=== PATIENT | female | born 1945 | race Caucasian/White ===

== ENCOUNTER 2019-06-14 15:48 | Inpatient (IN) ==
[2019-06-14] MEDS ORDERED: DILTIAZEM HCL 5 MG/ML VIAL IV ONE ×2 (16:20→17:08)
[2019-06-14 16:27] LABS: Hematocrit 40.8 % (37.0-47.0); Hemoglobin 13.5 gm/dL (12.5-16.0); Mean Corpuscular Hemoglobin 33.1 pg (27-31); Mean Corpuscular Hgb Conc 33.1 g/dl (32-36); Mean Platelet Volume 9.6 fl (8-12.5); Neutrophil # 11.4 K/mm3 (1.3-6.0); Neutrophil % 86.5 % (42-75.0); Platelet Count 222 K/mm3 (150-450); Red Blood Count 4.08 M/mm3 (4.2-5.4); Red Cell Distribution Width 12.3 % (11.5-14.0); White Blood Count 13.1 K/mm3 (4.0-10.5)
--- NOTE | 2019-06-14 16:35 | ERNOTE ---
Medical Problem HPI - General Chief Complaint: General Assessment Time Seen by Provider: 06/14/19 16:15 Source: patient Exam Limitations: no limitations - Immun/Allergies/Home Medications Immunizations: IMMUNIZATION HX Immunizations Up to Date Yes History of Influenza Vaccine Yes Hx Pneumococcal Vaccination Yes Allergies/Adverse Reactions: Allergies celecoxib Allergy (Verified 06/14/19 15:57) codeine Allergy (Verified 06/14/19 15:57) hydrocodone Allergy (Verified 06/14/19 15:57) lisinopril Allergy (Verified 06/14/19 15:57) mesalamine Allergy (Verified 06/14/19 15:57) metoclopramide Allergy (Verified 06/14/19 15:57) prochlorperazine Allergy (Verified 06/14/19 15:57) promethazine Allergy (Verified 06/14/19 15:57) salsalate Allergy (Verified 06/14/19 15:57) sucralfate Allergy (Verified 06/14/19 15:57) sulfamethoxazole Allergy (Verified 06/14/19 15:57) trimethoprim Allergy (Verified 06/14/19 15:57) Home Medications: HOME MEDICATIONS ALPRAZolam [Xanax] 0.5 mg PO Q6H PRN 09/21/18 [Last Taken Unknown] ALPRAZolam [Xanax] 1 mg PO HS PRN 09/21/18 [Last Taken Unknown] Albuterol Sulfate [Proair Hfa] 2 puff INHALATION QID PRN 09/21/18 [Last Taken Unknown] Budesonide/Formoterol Fumarate [Symbicort 160-4.5 Mcg Inhaler] 10.2 gm INHALATION BID 09/21/18 [Last Taken Unknown] Calcium Carb, Cit/Mag Cit, Gly [Localnesium Tablet] 1 ea PO DAILY 09/21/18 [Last Taken Unknown] Cholecalciferol [Vitamin D] 800 unit PO DAILY 09/21/18 [Last Taken Unknown] Cyanocobalamin [Vitamin B-12] 1,000 mcg IJ Q28D 09/21/18 [Last Taken Unknown] Dexlansoprazole [Dexilant] 60 mg PO DAILY 09/21/18 [Last Taken Unknown] Folic Acid 1 mg PO BID 09/21/18 [Last Taken Unknown] Hydrochlorothiazide 12.5 mg PO PRN PRN 09/21/18 [Last Taken Unknown] Levalbuterol Tartrate [Xopenex Hfa] 15 gm INHALATION Q4H PRN 09/21/18 [Last T aken Unknown] Montelukast Sodium [Singulair] 10 mg PO DAILY 09/21/18 [Last Taken Unknown] Multivitamin [One Daily Multivitamin] 1 ea PO DAILY 09/21/18 [Last Taken Unknown] Olmesartan Medoxomil [Benicar] 10 mg PO DAILY 09/21/18 [Last Taken Unknown] Ondansetron HCl 4 mg PO Q12H PRN 09/21/18 [Last Taken Unknown] Pravastatin Sodium [Pravachol] 20 mg PO DAILY 09/21/18 [Last Taken Unknown] Pyridoxine HCl [Vitamin B-6] 50 mg PO DAILY 09/21/18 [Last Taken Unknown] predniSONE [Prednisone] 2.5 mg PO HS 09/21/18 [Last Taken Unknown] predniSONE [Prednisone] 10 mg PO DAILY 09/21/18 [Last Taken Unknown] traMADol HCL [Tramadol HCl] 50 - 100 mg PO Q4H PRN 09/21/18 [Last Taken Unknown] traZODone HCL [Trazodone HCl] 50 - 100 mg PO HS PRN 09/21/18 [Last Taken Unknown] - History of Present History Narrative: Patient states that she was she was diagnosed with strep throat two weeks ago in the ER after visiting her grandchildren. She was started on levaquin due history of crohns' disease. Patient states that her sore throat has improved but she continue to have a cough with white sputum, generalized malaise and joint pains. While in triage it was noted that her heart rate suddenly increased, she started to have palpitations and associated chest pain, HR 160-180 Review of Systems - Review of Systems Constitutional: Present: recent illness, fatigue, malaise. Absent: fever ENT: Absent: sore throat Respiratory: Present: cough. Absent: shortness of breath Cardiology: Present: chest pain, palpitations Gastrointestinal/Abdominal: Absent: nausea, abdominal pain Genitourinary: Present: no symptoms reported Skin: Present: rash Neurological: Absent: headache Medical History (Last Reviewed 06/14/19 @ 16:33 by Elvira Sr MD) Acute Crohn's disease HTN (hypertension) Hypertension Low gammaglobulin level Normal colonoscopy Surgical History: Surgical History (Last Reviewed 06/14/19 @ 16:33 by Elvira Sr MD) H/O shoulder surgery right History of bowel resection History of hip surgery ear implant baja device for hearing loss Family History: Family History (Last Reviewed 06/14/19 @ 15:57 by Thais Morales RN) Mother CVA (cerebral vascular accident) Hypertension Father Lung cancer Social History: (Last Updated 06/14/19 @ 15:57 by Thais Morales RN) Tobacco: Smoking Status: Never smoker Alcohol: alcohol intake: former Substance Use: substance use type: does not use Physical Exam - Physical Exam General Appearance: Present: wd/wn, alert, mild distress, anxious, thin Eye Exam: Normal inspection: bilateral Ears, Nose, Throat: Present: normal pharynx Respiratory: Present: no respiratory distress, no accessory muscle use, lungs clear, decreased breath sounds, expiration (prolonged) Cardiovascular/Chest: Present: tachycardia Gastrointestinal/Abdominal: Present: nontender, nondistended, soft Extremity Exam: Present: no edema Neurological Exam: Present: alert, oriented, normal mood/affect Skin Exam: Present: normal color, warm/dry Progress - Results and Orders Patient's Lab Results:: I have reviewed the patient's lab results. - Vital Signs Patient's Vital Signs:: I have reviewed the patient's vital signs. Vital Signs: Vital Signs 06/14/19 15:48 06/14/19 16:21 06/14/19 16:26 Temperature 36.9 C Pulse Rate 85 193 H 184 H Respiratory Rate 16 17 Blood Pressure 153/65 H 153/65 H O2 Sat by Pulse Oximetry 100 95 06/14/19 16:29 Temperature Pulse Rate 134 H Respiratory Rate Blood Pressure O2 Sat by Pulse Oximetry - EKG EKG #1 EKG: atrial fibrillation, RBBB EKG read: Interp. by me - X-Ray X-Ray #1 X-Ray: chest - hyperinflated, no acute infiltrate Interpretation: Interp. by me - Progress/Reassessment Chief Complaint: General Assessment Progress Note-Subjective: 06/14/19 16:32 after cardizem HR 130-140's 06/14/19 17:18 after returning from Xray, HR up to 180's, good response to cardizem 10mg, will start drip discussed test results including positive strep test 06/14/19 17:47 discussed with mariely Live to admit for new onset afib and start cephalosporin for strep Departure Clinical Impression: Strep throat, Atrial fibrillation with RVR - Departure Disposition: Still a patient Condition: Stable
[2019-06-14] MEDS ORDERED: NORMAL SALINE 1,000 ML IV ONE (16:43)
[2019-06-14 16:48] LABS: ALT 19 U/L (19-67); AST 24 U/L (0-48); Albumin * 3.6 gm/dl (3.4-5.0); Alkaline Phosphatase * 51 U/L (50-170); Anion Gap 10.2 mmol/L (6.8-13.8); BUN/Creatinine Ratio 18.1 (9.0-21.6); Bilirubin, Total 0.3 mg/dL (0.0-1.1); Blood Urea Nitrogen 15 mg/dL (3-23); CRP 1.8 mg/dL (0.0-0.9); Ca. Corrected For Albumin 9.2 mg/dL (8.4-10.2); Calcium * 9.2 mg/dL (7.9-10.9); Carbon Dioxide 31.1 mmol/L (24-32.6); Chloride 105 mmol/L (97-106); Glucose * 145 mg/dL (70-110); Potassium 4.3 mmol/L (3.4-4.6); Sodium 142 mmol/L (132-142); TSH * 0.367 uIU/mL (0.358-3.74); Total Protein 7.8 gm/dL (6.2-8.2); Troponin I Less than 0.017 ng/mL (0.00-0.10)
[2019-06-14] MEDS ORDERED: ACETAMINOPHEN 1,000 MG/100 ML BTL IV ONE (17:28)
[2019-06-14] MEDS: DILTIAZEM HCL 125 MG in DEXTROSE 5 % IN WATER 100 ML IV PRN ×2 (17:32)
[2019-06-14] MEDS: CEFUROXIME AXETIL 250 MG TABLET PO SCH (19:34)
[2019-06-14] MEDS ORDERED: FLUTICASONE PROPION/SALMETEROL 14 PUFF DISK.W.DEV IH SCH (21:00)
[2019-06-14] MEDS: traMADol HCL 50 MG TABLET PO PRN (21:40)
[2019-06-14] MEDS: ALPRAZolam 1 MG TABLET PO PRN (21:41)
[2019-06-14] MEDS: DOCUSATE SODIUM 100 MG CAPSULE PO SCH (21:41)
[2019-06-14] MEDS: MONTELUKAST SODIUM 10 MG TABLET PO SCH (21:41)
--- NOTE | 2019-06-15 00:04 | HP ---
Chief Complaint - Chief Complaint Date of Service: 06/14/19 Time of Service: 23:00 Chief Complaint: Fatigue andnot feeling well History of Present Illness: 73-year-old female with past medical history of asthma, hypertension, Crohn's disease and low gamma globulin level (immunosuppressed) presents to [facility] for evaluation for ongoing fatigue. Primary care provider Dr. Max Kate DO. Patient states approximately 2 weeks ago she was evaluated for sore throat and multiple joint pains in the office by primary care provider. Patient has been around a lot of sick children with strep throat, tested in office for strep throat and was found to be positive. Patient was started on on Levaquin because she is allergic to penicillin. She was on 10-day treatment with minimal improvement. States multiple joint pain and fatigue continue to progress. Contacted primary care provider and was referred to Dr. Beaver in internal medicine for higher level of care. Appointment was scheduled for Monday, June 19, 2019 for further evaluation. Patient states polyarthralgias and fatigue were progressively worsening , now associated with rash of her lower back, rashes described as red and dry, denies any tingling sensation or neuropathic pain. She states she has had shingles in the past and this is unlike shingles. Patient states she has been applying Aspercreme to alleviate pain associated with polyarthralgias. Patient decided to come to the ER for further evaluation versus waiting for appointment on June 19, 2019. After arrival to the ER, patient was placed on a radiation monitor patient became tachycardic with intermittent chest pain that quickly resolved without medical intervention. EKG was consistent with A. fib with RVR. 2 boluses of diltiazem IV 10 mg were administered with failure to control rate and patient was started on Cardizem drip. Cardiac work-up completed and troponins were unremarkable, BNP slightly elevated at 402. Patient is known previous history of cardiac disease. Rapid strep test completed and patient was positive. Due to her allergy to penicillin patient was started on cefuroxime mean. Currently awaiting cultures and sensitivities. Labs also significant for leukocytosis with left shift, hyperglycemia of 145, elevated CRP of 1.8, lactic was normal. Patient is afebrile. Chest x-ray was unremarkable. Patient was admitted to [facility] for further monitoring of A. fib RVR and treatment for rapid strep. In regards to A. fib RVR will auto titrate Cardizem drip until patient has rate controlled, then switch to oral Cardizem and wean off drip. Continue to monitor for additional 12 hours and administer a second dose of oral Cardizem and ensure patient is rate controlled. Will consider completing an echo prior to discharge. In regards to rapid strep most likely patient did not respond well to initial treatment as first-line treatment is penicillin however patient is allergic, versus resistance to antibiotic. I will await cultures and sensitivities and adjust antibiotics accordingly. Patient evaluated on arrival to [facility], she is resting comfortably without any complaints. She denies chest pain or shortness of breath. Discussed plan with patient, patient voiced understanding is agreeable plan. Medical History (Last Updated 06/14/19 @ 19:28 by Sherri Swenson RN) Asthma Acute Crohn's disease HTN (hypertension) Hypertension Low gammaglobulin level Normal colonoscopy Surgical History: Surgical History (Last Reviewed 06/14/19 @ 16:33 by Elvira Sr MD) H/O shoulder surgery right History of bowel resection History of hip surgery ear implant baja device for hearing loss Family History: Family History (Last Reviewed 06/14/19 @ 15:57 by Thais Morales RN) Mother CVA (cerebral vascular accident) Hypertension Father Lung cancer Social History: (Last Updated 06/14/19 @ 15:57 by Thais Morales RN) Tobacco: Smoking Status: Never smoker Alcohol: alcohol intake: former Substance Use: substance use type: does not use Review Of Systems (GEN) - Review of Systems Generalized/Overall Review: Present: Weakness, Fatigue. Absent: Chills, Fever EENTM: Present: Throat Pain Respiratory: Absent: Cough, Shortness of Breath Cardiac: Present: Chest Pain, Palpitations. Absent: Edema, Syncope Abdominal: Absent: Nausea, Vomiting, Abdominal Pain Musculoskeletal: Present: Joint Pain, Back Pain, Joint Swelling, Neck Pain Skin: Present: Rash Immunizations: IMMUNIZATION HX Immunizations Up to Date Yes History of Influenza Vaccine Yes Hx Pneumococcal Vaccination Yes Allergies/Adverse Reactions: Allergies Allergy/AdvReac Type Severity Reaction Status Date / Time celecoxib Allergy Verified 06/14/19 15:57 codeine Allergy Verified 06/14/19 15:57 hydrocodone Allergy Verified 06/14/19 15:57 lisinopril Allergy Verified 06/14/19 15:57 mesalamine Allergy Verified 06/14/19 15:57 metoclopramide Allergy Verified 06/14/19 15:57 prochlorperazine Allergy Verified 06/14/19 15:57 promethazine Allergy Verified 06/14/19 15:57 salsalate Allergy Verified 06/14/19 15:57 sucralfate Allergy Verified 06/14/19 15:57 sulfamethoxazole Allergy Verified 06/14/19 15:57 trimethoprim Allergy Verified 06/14/19 15:57 Home Medications: HOME MEDICATIONS ALPRAZolam [Xanax] 1 mg PO HS PRN 09/21/18 [Last Taken Unknown] Albuterol Sulfate [Proair Hfa] 2 puff INHALATION QID PRN 09/21/18 [Last Taken Unknown] Budesonide/Formoterol Fumarate [Symbicort 160-4.5 Mcg Inhaler] 10.2 gm INHALATION BID 09/21/18 [Last Taken Unknown] Calcium Carb, Cit/Mag Cit, Gly [Localnesium Tablet] 1 ea PO DAILY 09/21/18 [Last Taken Unknown] Cholecalciferol [Vitamin D] 800 unit PO DAILY 09/21/18 [Last Taken Unknown] Cyanocobalamin [Vitamin B-12] 1,000 mcg IJ Q28D 09/21/18 [Last Taken Unknown] Dexlansoprazole [Dexilant] 60 mg PO DAILY 09/21/18 [Last Taken Unknown] Folic Acid 1 mg PO DAILY 09/21/18 [Last Taken Unknown] Hydrochlorothiazide 12.5 mg PO PRN PRN 09/21/18 [Last Taken Unknown] Levalbuterol Tartrate [Xopenex Hfa] 15 gm INHALATION Q4H PRN 09/21/18 [Last Taken Unknown] Montelukast Sodium [Singulair] 10 mg PO HS 09/21/18 [Last Taken Unknown] Multivitamin [One Daily Multivitamin] 1 ea PO DAILY 09/21/18 [Last Taken Unknown] Olmesartan Medoxomil [Benicar] 10 mg PO DAILY 09/21/18 [Last Taken Unknown] Ondansetron HCl 4 mg PO Q12H PRN 09/21/18 [Last Taken Unknown] Pravastatin Sodium [Pravachol] 20 mg PO DAILY 09/21/18 [Last Taken Unknown] Pyridoxine HCl [Vitamin B-6] 50 mg PO DAILY 09/21/18 [Last Taken Unknown] predniSONE [Prednisone] 7 mg PO DAILY 09/21/18 [Last Taken Unknown] traMADol HCL [Tramadol HCl] 50 mg PO Q4H PRN 09/21/18 [Last Taken Unknown] traZODone HCL [Trazodone HCl] 50 mg PO HS PRN 09/21/18 [Last Taken Unknown] Docusate Sodium [Colace] 100 mg PO HS 06/14/19 [Last Taken Unknown] Exam - Exam Vital Signs: Vital Signs - Last Taken Temp 36.9 C 06/14/19 23:07 Pulse 99 06/14/19 23:07 Resp 16 06/14/19 23:07 BP 90/57 06/14/19 23:07 Pulse Ox 99 06/14/19 23:07 Constitutional: Present: Alert, Oriented x3, Cooperative, Well developed, Well nourished, No distress ENT Exam: Present: normal ENT inspection, hearing grossly normal, pharynx normal, TMs normal Back Exam: Present: other - Erythema and dry skin of right low back. No pustules. Nontender to palpation. Likely viral in etiology. Respiratory: Present: chest non-tender, lungs clear, normal breath sounds, no respiratory distress Cardiovascular/Chest: Present: normal peripheral pulses, no chest tenderness, no edema, no gallop, no JVD, no murmur, tachycardia, irregularly irregular Abdomen: Present: Normal bowel sounds, soft, nontender Extremity: Present: normal range of motion, non-tender, normal inspection, no pedal edema, no calf tenderness, normal capillary refill Skin Exam: Present: normal color, warm/dry, other - Right lower back Neurologic: Present: oriented x 3 Diagnostic Studies: Abnormal Lab Results 06/14/19 06/14/19 06/14/19 Range/Units 16:20 16:20 16:32 WBC 13.1 H (4.0-10.5) K/mm3 RBC 4.08 L (4.2-5.4) M/mm3 MCH 33.1 H (27-31) pg Immature Gran # (Auto) 0.05 H (0.000-0.0310) K/mm3 Neutrophils % 86.5 H (42-75.0) % Lymphocytes % 7.5 L (20-51) % Neutrophils # 11.4 H (1.3-6.0) K/mm3 Lymphocytes # 0.98 L (1.5-3.5) k/mm3 Plasma Sodium 143 H (130-142) mmol/L Random Glucose 145 H (70-110) mg/dL C-Reactive Prot, Quant 1.8 H (0.0-0.9) mg/dL B-Natriuretic Peptide (5-325) pg/mL Group A Strep Rapid Positive H (NEGATIVE) 06/14/19 Range/Units 16:40 WBC (4.0-10.5) K/mm3 RBC (4.2-5.4) M/mm3 MCH (27-31) pg Immature Gran # (Auto) (0.000-0.0310) K/mm3 Neutrophils % (42-75.0) % Lymphocytes % (20-51) % Neutrophils # (1.3-6.0) K/mm3 Lymphocytes # (1.5-3.5) k/mm3 Plasma Sodium (130-142) mmol/L Random Glucose (70-110) mg/dL C-Reactive Prot, Quant (0.0-0.9) mg/dL B-Natriuretic Peptide 402 H (5-325) pg/mL Group A Strep Rapid (NEGATIVE) Laboratory Results WBC 13.1 K/mm3 (4.0-10.5) H 06/14/19 16:20 RBC 4.08 M/mm3 (4.2-5.4) L 06/14/19 16:20 Hgb 13.5 gm/dL (12.5-16.0) 06/14/19 16:20 Hct 40.8 % (37.0-47.0) 06/14/19 16:20 MCV 100.0 fl (78-100) 06/14/19 16:20 MCH 33.1 pg (27-31) H 06/14/19 16:20 MCHC 33.1 g/dl (32-36) 06/14/19 16:20 RDW 12.3 % (11.5-14.0) 06/14/19 16:20 Plt Count 222 K/mm3 (150-450) 06/14/19 16:20 MPV 9.6 fl (8-12.5) 06/14/19 16:20 Immature Gran % (Auto) 0.40 % (0.001-0.429) 06/14/19 16:20 Immature Gran # (Auto) 0.05 K/mm3 (0.000-0.0310) H 06/14/19 16:20 Neutrophils % 86.5 % (42-75.0) H 06/14/19 16:20 Lymphocytes % 7.5 % (20-51) L 06/14/19 16:20 Monocytes % 5.3 % (0.0-9) 06/14/19 16:20 Eosinophils % 0.0 % (0.0-3.0) 06/14/19 16:20 Basophils % 0.3 % (0.0-1.0) 06/14/19 16:20 Nucleated RBC % 0.0 k/mm3 (0-1) 06/14/19 16:20 Neutrophils # 11.4 K/mm3 (1.3-6.0) H 06/14/19 16:20 Lymphocytes # 0.98 k/mm3 (1.5-3.5) L 06/14/19 16:20 Monocytes # 0.7 k/mm3 (0.0-1.0) 06/14/19 16:20 Eosinophils # 0.0 k/mm3 (0.0-0.7) 06/14/19 16:20 Absolute Basophils 0.0 k/mm3 (0.0-0.1) 06/14/19 16:20 Sodium 142 mmol/L (132-142) 06/14/19 16:20 Plasma Sodium 143 mmol/L (130-142) H 06/14/19 16:20 Potassium 4.3 mmol/L (3.4-4.6) 06/14/19 16:20 Chloride 105 mmol/L (97-106) 06/14/19 16:20 Carbon Dioxide 31.1 mmol/L (24-32.6) 06/14/19 16:20 Anion Gap 10.2 mmol/L (6.8-13.8) 06/14/19 16:20 BUN 15 mg/dL (3-23) 06/14/19 16:20 Creatinine 0.83 mg/dL (0.4-1.4) 06/14/19 16:20 Est GFR (Non-Af Amer) 72 mL/min (60-130) 06/14/19 16:20 BUN/Creatinine Ratio 18.1 (9.0-21.6) 06/14/19 16:20 Random Glucose 145 mg/dL (70-110) H 06/14/19 16:20 Lactic Acid, Venous 1.8 mmol/L (0.4-2.0) 06/14/19 16:40 Calcium 9.2 mg/dL (7.9-10.9) 06/14/19 16:20 Calcium Adj for Albumin 9.2 mg/dL (8.4-10.2) 06/14/19 16:20 Total Bilirubin 0.3 mg/dL (0.0-1.1) 06/14/19 16:20 AST 24 U/L (0-48) 06/14/19 16:20 ALT 19 U/L (19-67) 06/14/19 16:20 Alkaline Phosphatase 51 U/L (50-170) 06/14/19 16:20 Troponin I 0.026 ng/mL (0.00-0.10) 06/14/19 19:35 C-Reactive Prot, Quant 1.8 mg/dL (0.0-0.9) H 06/14/19 16:20 B-Natriuretic Peptide 402 pg/mL (5-325) H 06/14/19 16:40 Total Protein 7.8 gm/dL (6.2-8.2) 06/14/19 16:20 Albumin 3.6 gm/dl (3.4-5.0) 06/14/19 16:20 TSH 0.367 uIU/mL (0.358-3.74) 06/14/19 16:20 Influenza Type A Ag Negative (NEGATIVE) 06/14/19 16:32 Influenza Type B Ag Negative (NEGATIVE) 06/14/19 16:32 Group A Strep Rapid Positive (NEGATIVE) H 06/14/19 16:32 Assessment/Plan - Narrative Narrative: - Assessment/Plan 1. Atrial fibrillation with RVR Problem: Acute -New onset Received 2 boluses of Cardizem 10 mg IV impression the ER, started on Cardizem drip will auto titrate until patient is rate control. Once patient rate controlled will administer first oral dose of Cardizem and wean off drip. Will monitor for 12 hours and administer second dose prior to discharge to ensure patient is well rate controlled. -Cardiac work-up has been largely unremarkable with exception of mild elevation of BNP. -We will trend troponin x1 -We will consider completing echo in a.m. -We will start patient on Eliquis 5 mg p.o. daily 2. Strep throat Problem: Acute -Most likely the reason of leukocytosis with left shift. Continue monitoring daily. -Rapid strep test positive -Failed outpatient treatment with Levaquin. -Patient is penicillin allergic -Started on cefuroxime -Awaiting cultures and sensitivities and will adjust antibiotics accordingly 3. Elevated brain natriuretic peptide (BNP) level Problem: Acute -No previous diagnosis of congestive heart failure -We will consider obtaining echo in a.m. -Patient is not fluid overloaded no need for diuretics -Further evaluation can be completed outpatient by primary care provider 4. Polyarthralgia and myalgias Problem: Acute -Most likely viral in etiology -we will order rapid mono test -If it is viral in etiology expect symptoms to resolve over the next 12 weeks. -We will consider anti-inflammatory in a.m. -If symptoms do not resolve with elevated CRP, consider work-up for rheumatoid arthritis outpatient and referral to rheumatology for higher level of care. -Patient also on pravastatin 20 mg daily, however after review of medical records I cannot confirm patient has a diagnosis of hyperlipidemia. Will consider discontinuing pravastatin as this may be the etiology of her myalgias. 5. Rash and nonspecific skin eruption Problem: Acute -Most likely ovarian in etiology, less likely shingles -We will continue to monitor -No further medical treatment warranted. 6. Hypertension Problem: Chronic -Currently well controlled -We will continue home medication of hydrochlorothiazide 7. Asthma Problem: Chronic -Continue home medication needed Fluids electrolytes nutrition: Heart healthy diet DVT prophylaxis: Start patient on Eliquis for A. fib and this should be adequate coverage for DVT prophylaxis CODE STATUS: Full code Disposition: Discharging patient within 24 to 48 hours. Patient's rate controlled on Cardizem drip will transition to oral Cardizem and monitor for additional 12 hours and administer second dose prior to discharge. Will await sensitivities of strep cultures, and adjust antibiotics accordingly. Will consider obtaining echo in the morning. (6) Viral illness Problem: Acute - Assessment/Plan (1) Atrial fibrillation with RVR Problem: Acute (2) Elevated brain natriuretic peptide (BNP) level Problem: Acute (3) Strep throat Problem: Acute (4) Polyarthralgia Problem: Acute (5) Rash and nonspecific skin eruption Problem: Acute (6) Viral illness Problem: Acute (7) Hypertension Problem: Chronic Qualifiers: Hypertension type: essential hypertension Qualified Code(s): I10 - Essential (primary) hypertension (8) Asthma Problem: Chronic Qualifiers: Asthma severity: mild Asthma persistence: intermittent Asthma complication type: uncomplicated Qualified Code(s): J45.20 - Mild intermittent asthma, uncomplicated
[2019-06-15] MEDS ORDERED: traMADol HCL 50 MG TABLET PO PRN (00:32)
[2019-06-15] MEDS ORDERED: traZODone HCL 50 MG TABLET PO PRN (00:32)
[2019-06-15] MEDS ORDERED: ALPRAZolam 1 MG TABLET PO PRN (00:32)
[2019-06-15] MEDS ORDERED: LEVALBUTEROL TARTRATE inhalation PRN (00:32)
[2019-06-15] MEDS ORDERED: ONDANSETRON HCL 4 MG TABLET PO PRN (00:32)
[2019-06-15] MEDS ORDERED: ALBUTEROL SULFATE 200 PUFF INHALER IH PRN (00:32)
[2019-06-15] MEDS ORDERED: HYDROCHLOROTHIAZIDE 12.5 MG CAPSULE PO PRN (01:00)
[2019-06-15] MEDS: ACETAMINOPHEN 1,000 MG/100 ML BTL IV PRN ×2 (01:13→10:56)
[2019-06-15] MEDS: APIXABAN 5 MG TABLET PO SCH ×3 (01:15→22:03)
[2019-06-15] MEDS: DILTIAZEM HCL 125 MG in DEXTROSE 5 % IN WATER 100 ML IV PRN ×2 (03:01)
[2019-06-15] MEDS: traMADol HCL 50 MG TABLET PO PRN ×2 (05:12→16:02)
[2019-06-15 05:55] LABS: Hematocrit 39.2 % (37.0-47.0); Hemoglobin 12.8 gm/dL (12.5-16.0); Mean Cell Volume 99.7 fl (78-100); Mean Corpuscular Hemoglobin 32.6 pg (27-31); Mean Corpuscular Hgb Conc 32.7 g/dl (32-36); Neutrophil # 3.8 K/mm3 (1.3-6.0); Neutrophil % 57.3 % (42-75.0); Platelet Count 183 K/mm3 (150-450); Red Blood Count 3.93 M/mm3 (4.2-5.4); Red Cell Distribution Width 12.3 % (11.5-14.0); White Blood Count 6.6 K/mm3 (4.0-10.5)
[2019-06-15 06:36] LABS: Albumin * 2.8 gm/dl (3.4-5.0); Anion Gap 10.9 mmol/L (6.8-13.8); BUN/Creatinine Ratio 14.5 (9.0-21.6); Bilirubin, Total 0.3 mg/dL (0.0-1.1); Ca. Corrected For Albumin 8.6 mg/dL (8.4-10.2); Carbon Dioxide 23.9 mmol/L (24-32.6); Potassium 3.8 mmol/L (3.4-4.6); Total Protein 6.5 gm/dL (6.2-8.2); Troponin I 0.045 ng/mL (0.00-0.10)
[2019-06-15] MEDS: PANTOPRAZOLE SODIUM 40 MG TABLET.EC PO SCH (07:23)
[2019-06-15] MEDS ORDERED: ALBUTEROL SULFATE 2.5 MG/0.5 ML VIAL.NEB IH PRN (07:34)
[2019-06-15] MEDS: CEFUROXIME AXETIL 250 MG TABLET PO SCH ×2 (08:02→17:39)
[2019-06-15] MEDS: MULTIVITAMINS 1 CAP CAPSULE PO SCH (08:03)
[2019-06-15] MEDS: PYRIDOXINE HCL (VITAMIN B6) 25 MG TABLET PO SCH (08:03)
[2019-06-15] MEDS: CHOLECALCIFEROL 400 UNIT TABLET PO SCH (08:03)
[2019-06-15] MEDS: FOLIC ACID 1 MG TABLET PO SCH (08:04)
[2019-06-15] MEDS: CALCIUM CARBONATE 500 MG TAB.CHEW PO SCH (08:04)
[2019-06-15] MEDS ORDERED: ROSUVASTATIN CALCIUM 10 MG TABLET PO SCH ×2 (09:00→21:00)
[2019-06-15] MEDS ORDERED: CYANOCOBALAMIN 1,000 MCG/ML VIAL IJ SCH (09:00)
[2019-06-15] MEDS ORDERED: PYRIDOXINE HCL 100 MG PO SCH (09:00)
[2019-06-15] MEDS ORDERED: FLUTICASONE PROPION/SALMETEROL 14 PUFF DISK.W.DEV IH SCH (09:00)
[2019-06-15] MEDS: LOSARTAN POTASSIUM 50 MG TABLET PO SCH (10:58)
--- NOTE | 2019-06-15 11:55 | PN ---
Subjective - Date and Time Seen Date: 06/15/19 Time: 09:30 Subjective Narrative: No acute changes overnight. Discussed management in regards to A. fib RVR and rapid strep. Return with educational pamphlets in regards to A. fib RVR. Objective - Review of Systems Generalized/Overall Review: Reports: Fatigue Respiratory: Denies: Shortness of Breath, Orthopnea Cardiac: Reports: Palpitations. Denies: Chest Pain, Edema Abdominal: Denies: Abdominal Pain Musculoskeletal Complaints: Reports: Joint Pain, Muscle Pain Skin: Reports: Dryness, Rash - Right lower back - Vitals Vitals: Last Vital Signs Temp 37.1 C 06/15/19 07:24 Pulse 121 H 06/15/19 10:58 Resp 24 H 06/15/19 08:00 BP 124/71 06/15/19 10:58 Pulse Ox 100 06/15/19 08:00 - Abnormal Lab Findings Abnormal Lab Findings: Abnormal Lab Results 06/14/19 06/14/19 06/14/19 Range/Units 16:20 16:20 16:32 WBC 13.1 H (4.0-10.5) K/mm3 RBC 4.08 L (4.2-5.4) M/mm3 MCH 33.1 H (27-31) pg Immature Gran % (Auto) (0.001-0.429) % Immature Gran # (Auto) 0.05 H (0.000-0.0310) K/mm3 Neutrophils % 86.5 H (42-75.0) % Lymphocytes % 7.5 L (20-51) % Neutrophils # 11.4 H (1.3-6.0) K/mm3 Lymphocytes # 0.98 L (1.5-3.5) k/mm3 Plasma Sodium 143 H (130-142) mmol/L Chloride (97-106) mmol/L Carbon Dioxide (24-32.6) mmol/L Random Glucose 145 H (70-110) mg/dL Alkaline Phosphatase (50-170) U/L C-Reactive Prot, Quant 1.8 H (0.0-0.9) mg/dL B-Natriuretic Peptide (5-325) pg/mL Albumin (3.4-5.0) gm/dl Group A Strep Rapid Positive H (NEGATIVE) 06/14/19 06/15/19 06/15/19 Range/Units 16:40 05:00 05:00 WBC (4.0-10.5) K/mm3 RBC 3.93 L (4.2-5.4) M/mm3 MCH 32.6 H (27-31) pg Immature Gran % (Auto) 0.50 H (0.001-0.429) % Immature Gran # (Auto) (0.000-0.0310) K/mm3 Neutrophils % (42-75.0) % Lymphocytes % (20-51) % Neutrophils # (1.3-6.0) K/mm3 Lymphocytes # (1.5-3.5) k/mm3 Plasma Sodium (130-142) mmol/L Chloride 108 H (97-106) mmol/L Carbon Dioxide 23.9 L (24-32.6) mmol/L Random Glucose (70-110) mg/dL Alkaline Phosphatase 49 L (50-170) U/L C-Reactive Prot, Quant (0.0-0.9) mg/dL B-Natriuretic Peptide 402 H (5-325) pg/mL Albumin 2.8 L (3.4-5.0) gm/dl Group A Strep Rapid (NEGATIVE) - EKG/Xray Findings EKG: atrial fibrillation EKG read: Reviewed by me - Exam Constitutional: Present: Alert, Oriented x3, Cooperative, Well developed, Well nourished, No distress ENT Exam: Present: hearing grossly normal Neck: Present: non-tender, full range of motion, normal inspection Respiratory: Present: lungs clear, normal breath sounds, no respiratory distress Cardiovascular/Chest: Present: no chest tenderness, no edema, no gallop, no JVD, no murmur, tachycardia, irregularly irregular Abdomen: Present: Normal bowel sounds, soft, nontender Extremity: Present: normal range of motion, non-tender, normal inspection, no pedal edema, no calf tenderness Skin Exam: Present: normal color, warm/dry Neurologic: Present: alert, oriented x 3 Appearance: Present: appropriate appearance Eye contact: Present: cooperative Assessment/Plan Plan Narrative: - Assessment/Plan 1. Atrial fibrillation with RVR Problem: Acute -New onset -Continue Cardizem drip, continue to titrate accordingly. -Transition to oral once rate is well controlled then will wean off drip -Will monitor for additional 1224 hrs. on oral medication to ensure patient is rate controlled -Continue on Eliquis 5 mg p.o. daily 2. Strep throat Problem: Acute - Leukocytosis resolved - Continue Cefuroxime on day #2 of 5. 3. Elevated brain natriuretic peptide (BNP) level Problem: Acute -No previous diagnosis of congestive heart failure, however patient did states she has a history of coronary artery disease that is why she is on pravastatin and baby aspirin. Patient states had a cardiac cath many years ago but no problems since then. -Echo to be completed outpatient. She is not fluid overloaded. No need for diuretics 4. Polyarthralgia and myalgias Problem: Acute -Most likely viral in etiology -Monotest negative -If it is viral in etiology expect symptoms to resolve over the next 12 weeks. -With elevated CRP, consider work-up for rheumatoid arthritis outpatient and referral to rheumatology for higher level of care. 5. Rash and nonspecific skin eruption Problem: Acute -Most likely ovarian in etiology, less likely shingles -We will continue to monitor -No further medical treatment warranted. 6. Hypertension Problem: Chronic -Currently well controlled -We will continue home medication of hydrochlorothiazide 7. Asthma Problem: Chronic -Continue home medication needed Fluids electrolytes nutrition: Heart healthy diet DVT prophylaxis: Eliquis CODE STATUS: Full code Disposition: Discharging patient within 24 to 48 hours. When patient is rate controlled on Cardizem drip will transition to oral Cardizem and wean off drip. I will monitor for additional 12 to 20 hours and administer second dose prior to dis charge to ensure patient still rate control. Echo and warranted cardiac work-up to be completed outpatient along with work-up for polyarthralgias with primary care provider. - Problems/Diagnosis (1) Atrial fibrillation with RVR Problem: Acute (2) Elevated brain natriuretic peptide (BNP) level Problem: Acute (3) Strep throat Problem: Acute (4) Polyarthralgia Problem: Acute (5) Rash and nonspecific skin eruption Problem: Acute (6) Viral illness Problem: Acute (7) Hypertension Problem: Chronic Qualifiers: Hypertension type: essential hypertension Qualified Code(s): I10 - Essential (primary) hypertension (8) Asthma Problem: Chronic Qualifiers: Asthma severity: mild Asthma persistence: intermittent Asthma complicatio n type: uncomplicated Qualified Code(s): J45.20 - Mild intermittent asthma, uncomplicated
[2019-06-15] MEDS ORDERED: DILTIAZEM HCL 60 MG CAP.SR.12H PO SCH ×2 (14:15→14:30)
[2019-06-15] MEDS: DILTIAZEM HCL 60 MG TABLET PO SCH ×2 (14:50→22:04)
[2019-06-15] MEDS ORDERED: MONTELUKAST SODIUM 10 MG TABLET PO SCH (21:00)
[2019-06-15] MEDS ORDERED: DOCUSATE SODIUM 100 MG CAPSULE PO SCH (21:00)
[2019-06-15] MEDS: FLUTICASONE PROPION/SALMETEROL 14 PUFF DISK.W.DEV IH SCH (22:01)
[2019-06-15] MEDS: DOCUSATE SODIUM 100 MG CAPSULE PO SCH (22:02)
[2019-06-15] MEDS: MONTELUKAST SODIUM 10 MG TABLET PO SCH (22:04)
[2019-06-15] MEDS: ALPRAZolam 1 MG TABLET PO PRN (22:08)
[2019-06-16] MEDS: CEFUROXIME AXETIL 250 MG TABLET PO SCH (05:46)
[2019-06-16] MEDS: DILTIAZEM HCL 60 MG TABLET PO SCH (05:46)
[2019-06-16 05:51] LABS: Hematocrit 36.1 % (37.0-47.0); Mean Cell Volume 100.3 fl (78-100); Mean Corpuscular Hemoglobin 33.3 pg (27-31); Mean Corpuscular Hgb Conc 33.2 g/dl (32-36); Mean Platelet Volume 9.7 fl (8-12.5); Neutrophil # 4.5 K/mm3 (1.3-6.0); Neutrophil % 65.5 % (42-75.0); Platelet Count 177 K/mm3 (150-450); Red Cell Distribution Width 12.5 % (11.5-14.0); White Blood Count 6.9 K/mm3 (4.0-10.5)
[2019-06-16 06:11] LABS: Albumin * 2.6 gm/dl (3.4-5.0); Anion Gap 11.1 mmol/L (6.8-13.8); BUN/Creatinine Ratio 22.7 (9.0-21.6); Bilirubin, Total 0.3 mg/dL (0.0-1.1); Ca. Corrected For Albumin 8.8 mg/dL (8.4-10.2); Carbon Dioxide 24.9 mmol/L (24-32.6)
--- NOTE | 2019-06-16 06:48 | PN ---
Subjective - Date and Time Seen Date: 06/16/19 Objective - Vitals Vitals: Last Vital Signs Temp 37.0 C 06/15/19 22:00 Pulse 68 06/16/19 05:46 Resp 17 06/16/19 05:00 BP 95/39 06/16/19 05:46 Pulse Ox 100 06/16/19 05:00 - Abnormal Lab Findings Abnormal Lab Findings: Abnormal Lab Results 06/16/19 06/16/19 Range/Units 05:45 05:45 RBC 3.60 L (4.2-5.4) M/mm3 Hgb 12.0 L (12.5-16.0) gm/dL Hct 36.1 L (37.0-47.0) % MCV 100.3 H (78-100) fl MCH 33.3 H (27-31) pg Chloride 108 H (97-106) mmol/L BUN/Creatinine Ratio 22.7 H (9.0-21.6) ALT 17 L (19-67) U/L Alkaline Phosphatase 42 L (50-170) U/L Total Protein 6.0 L (6.2-8.2) gm/dL Albumin 2.6 L (3.4-5.0) gm/dl Assessment/Plan - Problems/Diagnosis (1) Atrial fibrillation with RVR Problem: Acute (2) Elevated brain natriuretic peptide (BNP) level Problem: Acute (3) Strep throat Problem: Acute (4) Polyarthralgia Problem: Acute (5) Rash and nonspecific skin eruption Problem: Acute (6) Viral illness Problem: Acute (7) Hypertension Problem: Chronic Qualifiers: Hypertension type: essential hypertension Qualified Code(s): I10 - Essential (primary) hypertension (8) Asthma Problem: Chronic Qualifiers: Asthma severity: mild Asthma persistence: intermittent Asthma complication type: uncomplicated Qualified Code(s): J45.20 - Mild intermittent asthma, uncomplicated
[2019-06-16] MEDS: PANTOPRAZOLE SODIUM 40 MG TABLET.EC PO SCH (07:47)
[2019-06-16] MEDS: CALCIUM CARBONATE 500 MG TAB.CHEW PO SCH (08:30)
[2019-06-16] MEDS: APIXABAN 5 MG TABLET PO SCH (08:30)
[2019-06-16] MEDS: CHOLECALCIFEROL 400 UNIT TABLET PO SCH (08:30)
[2019-06-16] MEDS: PYRIDOXINE HCL (VITAMIN B6) 25 MG TABLET PO SCH (08:30)
[2019-06-16] MEDS: MULTIVITAMINS 1 CAP CAPSULE PO SCH (08:30)
[2019-06-16] MEDS: FOLIC ACID 1 MG TABLET PO SCH (08:30)
[2019-06-16] MEDS: FLUTICASONE PROPION/SALMETEROL 14 PUFF DISK.W.DEV IH SCH (08:30)
[2019-06-16] MEDS: LOSARTAN POTASSIUM 50 MG TABLET PO SCH (08:48)
--- NOTE | 2019-06-16 10:35 | DS ---
(1) Atrial fibrillation with RVR Problem: Acute (2) Elevated brain natriuretic peptide (BNP) level Problem: Acute (3) Strep throat Problem: Acute (4) Polyarthralgia Problem: Acute (5) Rash and nonspecific skin eruption Problem: Acute (6) Viral illness Problem: Acute (7) Hypertension Problem: Chronic Qualifiers: Hypertension type: essential hypertension Qualified Code(s): I10 - Essential (primary) hypertension (8) Asthma Problem: Chronic Qualifiers: Asthma severity: mild Asthma persistence: intermittent Asthma complic ation type: uncomplicated Qualified Code(s): J45.20 - Mild intermittent asthma, uncomplicated Date of Discharge:: 06/16/19 Description of Stay: 73-year-old female with past medical history of Asthma, CAD, Essential Hypertension, Crohn's disease and low gamma globulin level (immunosuppressed) admitted to [facility] for new onset A. fib with RVR, also found to be positive for strep. Primary care provider Dr. Max Kate DO. In regards to strep throat patient had failed outpatient treatment with the Levaquin 10-day course treatment, patient is allergic to penicillin therefore PCP put her on Levaquin. Started on cefuroxime and patient responded well. Currently on day 3 of 10. Will discharge patient with 7 days worth of antibiotics. In regards to new onset A. fib RVR, patient cardioverted on Cardizem drip transition to oral diltiazem 60 mg 3 times daily. Monitored for additional 24 h ours and remained in normal sinus rhythm however pulse is in the lower 60s. Will adjust dose and discharge patient home on diltiazem 60 mg 2 times daily. Extensive work-up completed and remarkable for elevated BNP, troponins were within normal limits. Advised patient remaining cardiac work-up can be completed outpatient by primary care provider and referral to manager revenue will be at the discretion of the primary care provider.. In regards to polyarthritis, most likely viral in etiology. Advised patient usually lasts up to 12 weeks. However advised her to discuss her symptoms with her primary care provider. Also advised symptoms could be secondary to osteoporosis. Advised to discuss physical therapy such as aquatic therapy, resistance or strength training. Advised patient, referrals to any specialist, will be at the discretion of the primary care provider. We will also revise her blood pressure medication list so she does not become hypotensive or bradycardic. I have discontinued hydrochlorothiazide, continue losartan 10 mg p.o. daily. I will review medication list patient before discharge. Follow-up appointment: Dr. Beaver on . Disposition: Patient is stable and will be discharged home today. Recommend discontinue omeprazole due to osteoporosis. Recommending administering pravastatin every other day on a trial period to see if myalgias improve. New medications: Eliquis 5 mg p.o. twice daily and diltiazem 60 mg twice daily for atrial fibrillation. Cefuroxime 250 milligrams twice daily x7 days for strep throat. Medication sent electronically to the pharmacy. Procedures Performed: none Results and Findings: Pending Mircobiology Results 06/14/19 17:00 Throat Throat Culture - Preliminary No Pathogens Isolated Lab Pending Results 06/14/19 16:20: WBC 13.1 H, RBC 4.08 L, Hgb 13.5, Hct 40.8, MCV 100.0, MCH 33.1 H, MCHC 33.1, RDW 12.3, Plt Count 222, MPV 9.6, Immature Gran % (Auto) 0.40, Immature Gran # (Auto) 0.05 H, Neutrophils % 86.5 H, Lymphocytes % 7.5 L, Monocytes % 5.3, Eosinophils % 0.0, Basophils % 0.3, Nucleated RBC % 0.0, Neutrophils # 11.4 H, Lymphocytes # 0.98 L, Monocytes # 0.7, Eosinophils # 0.0, Absolute Basophils 0.0 06/14/19 16:20: Sodium 142, Plasma Sodium 143 H, Potassium 4.3, Chloride 105, Carbon Dioxide 31.1, Anion Gap 10.2, BUN 15, Creatinine 0.83, Est GFR (Non-Af Amer) 72, BUN/Creatinine Ratio 18.1, Random Glucose 145 H, Calcium 9.2, Calcium Adj for Albumin 9.2, Total Bilirubin 0.3, AST 24, ALT 19, Alkaline Phosphatase 51, Troponin I Less than 0.017, C-Reactive Prot, Quant 1.8 H, Total Protein 7.8, Albumin 3.6, TSH 0.367 06/14/19 16:32: Group A Strep Rapid Positive H 06/14/19 16:32: Influenza Type A Ag Negative, Influenza Type B Ag Negative 06/14/19 16:40: B-Natriuretic Peptide 402 H 06/14/19 16:40: Lactic Acid, Venous 1.8 06/14/19 19:35: Troponin I 0.026 06/15/19 05:00: WBC 6.6 D, RBC 3.93 L, Hgb 12.8, Hct 39.2, MCV 99.7, MCH 32.6 H, MCHC 32.7, RDW 12.3, Plt Count 183, MPV 10.0, Immature Gran % (Auto) 0.50 H, Immature Gran # (Auto) 0.03, Neutrophils % 57.3, Lymphocytes % 32.4, Monocytes % 8.0, Eosinophils % 1.2, Basophils % 0.6, Nucleated RBC % 0.0, Neutrophils # 3.8, Lymphocytes # 2.15, Monocytes # 0.5, Eosinophils # 0.1, Absolute Basophils 0.0 06/15/19 05:00: Sodium 139, Plasma Sodium 139, Potassium 3.8, Chloride 108 H, Carbon Dioxide 23.9 L, Anion Gap 10.9, BUN 11, Creatinine 0.76, Est GFR (Non-Af Amer) 80, BUN/Creatinine Ratio 14.5, Random Glucose 92 D, Calcium 8.0, Calcium Adj for Albumin 8.6, Total Bilirubin 0.3, AST 33, ALT 24, Alkaline Phosphatase 49 L, Troponin I 0.045, Total Protein 6.5, Albumin 2.8 L 06/15/19 05:00: Monoscreen Negative 06/16/19 05:45: WBC 6.9, RBC 3.60 L, Hgb 12.0 L, Hct 36.1 L, MCV 100.3 H, MCH 33.3 H, MCHC 33.2, RDW 12.5, Plt Count 177, MPV 9.7, Immature Gran % (Auto) 0.30, Immature Gran # (Auto) 0.02, Neutrophils % 65.5, Lymphocytes % 23.5, Monocytes % 8.3, Eosinophils % 1.7, Basophils % 0.7, Nucleated RBC % 0.0, Neutrophils # 4.5, Lymphocytes # 1.62, Monocytes # 0.6, Eosinophils # 0.1, Absolute Basophils 0.1 06/16/19 05:45: Sodium 140, Plasma Sodium 140, Potassium 4.0, Chloride 108 H, Carbon Dioxide 24.9, Anion Gap 11.1, BUN 15, Creatinine 0.66, Est GFR (Non-Af Amer) 94, BUN/Creatinine Ratio 22.7 H, Random Glucose 86, Calcium 8.0, Calcium A dj for Albumin 8.8, Total Bilirubin 0.3, AST 25, ALT 17 L, Alkaline Phosphatase 42 L, Total Protein 6.0 L, Albumin 2.6 L Discharge Location: Home Disposition: Home self-care Condition: Stable Discharge Activity: Activity as tolerated Discharge Diet: Low salt Referrals: Camryn Beaver MD [Staff Physician] - Complete Home Medications List: Complete Home Medication List: ALPRAZolam [Xanax] 1 mg PO HS PRN 09/21/18 Albuterol Sulfate [Proair Hfa] 2 puff INHALATION QID PRN 09/21/18 Budesonide/Formoterol Fumarate [Symbicort 160-4.5 Mcg Inhaler] 10.2 gm INHALATION BID 09/21/18 Calcium Carb, Cit/Mag Cit, Gly [Localnesium Tablet] 1 ea PO DAILY 09/21/18 Cholecalciferol [Vitamin D] 800 unit PO DAILY 09/21/18 Cyanocobalamin [Vitamin B-12] 1,000 mcg IJ Q28D 09/21/18 Folic Acid 1 mg PO DAILY 09/21/18 Levalbuterol Tartrate [Xopenex Hfa] 15 gm INHALATION Q4H PRN 09/21/18 Montelukast Sodium [Singulair] 10 mg PO HS 09/21/18 Multivitamin [One Daily Multivitamin] 1 ea PO DAILY 09/21/18 Olmesartan Medoxomil [Benicar] 10 mg PO DAILY 09/21/18 Ondansetron HCl 4 mg PO Q12H PRN 09/21/18 Pravastatin Sodium [Pravachol] 20 mg PO DAILY 09/21/18 Pyridoxine HCl [Vitamin B-6] 50 mg PO DAILY 09/21/18 predniSONE [Prednisone] 7 mg PO DAILY 09/21/18 traMADol HCL [Tramadol HCl] 50 mg PO Q4H PRN 09/21/18 traZODone HCL [Trazodone HCl] 50 mg PO HS PRN 09/21/18 Docusate Sodium [Colace] 100 mg PO HS 06/14/19 Apixaban [Eliquis] 5 mg PO BID 30 Days #60 tab 06/16/19 Cefuroxime Axetil [Ceftin] 250 mg PO Q12H 7 Days #15 tab 06/16/19 Diltiazem HCl [Cardizem] 60 mg PO Q12H 30 Days #60 tab 06/16/19 Docusate Sodium [Colace] 100 mg PO HS cap 06/16/19
[2019-06-16] MEDS: traMADol HCL 50 MG TABLET PO PRN (10:39)
[2019-06-16 12:11] VITALS: BP 139/60
== END 2019-06-16 12:33 | disposition home or self-care (01) | DRG 309 ==
LOC: ER 15:48 → SCU 18:02 → MS 06-16 05:58
PROVIDERS: ADMIT Family Medicine; ATTEND Family Medicine
DX: R79.0 Abnormal level of blood mineral; R21 Rash and other nonspecific skin eruption; I48.20 Chronic atrial fibrillation, unspecified; J45.909 Unspecified asthma, uncomplicated; K50.90 Crohn's disease, unspecified, without complications; J02.0 Streptococcal pharyngitis; I10 Essential (primary) hypertension; J45.20 Mild intermittent asthma, uncomplicated; M25.50 Pain in unspecified joint; M79.10 Myalgia, unspecified site
CPT/HCPCS: 36415; 71020; 71046; 80053; 83519; 83605; 83880; 84443; 84484; 85025; 86140; 86308; 87070; 87400; 87430; 87449; 93005; 96365; 96367; 96375; 96376; 99285; J0131